=== PATIENT | male | born 1960 | race Asian ===

== ENCOUNTER 2017-03-07 10:34 | Emergency (ER) | payer MEDICARE, OTHER ==
[2017-03-07] MEDS ORDERED: OLANZapine ODT 5 MG TABLET TL ONE (10:50)
[2017-03-07] MEDS: OLANZapine ODT 5 MG TABLET TL ONE (10:53)
[2017-03-07] MEDS ORDERED: HALOPERIDOL 5 MG/ML VIAL ONE (11:18)
[2017-03-07] MEDS ORDERED: LORazepam 2 MG/ML SYRINGE ONE (11:18)
[2017-03-07] MEDS: LORazepam 2 MG/ML SYRINGE IM STA (11:20)
[2017-03-07] MEDS: HALOPERIDOL 5 MG/ML VIAL IM STA (11:20)
[2017-03-07 11:59] LABS: BASOPHILS % (AUTO) 0.4 %; EOSINOPHILS % (AUTO) 0.4 %; HCT - HEMATOCRIT 32.5 % (42.0-52.0); HGB - HEMOGLOBIN 11.2 g/dL (14.0-18.0); LYMPHOCYTES # (AUTO) 1.6 10^3/uL (1.5-3.5); LYMPHOCYTES % (AUTO) 22.3 %; MEAN CORPUSCULAR HEMOGLOBIN 30.5 pg (27.0-31.0); MEAN CORPUSCULAR HGB CONC 34.5 g/dL (32.0-36.0); MEAN CORPUSCULAR VOLUME 88.3 fL (80.0-94.0); MEAN PLATELET VOLUME 8.7 fL (7.4-11.4); MONOCYTES # (AUTO) 0.4 10^3/uL (0.0-1.0); MONOCYTES % (AUTO) 5.8 %; NEUTROPHILS # (AUTO) 5.1 10^3/uL (1.5-6.6); NEUTROPHILS % (AUTO) 71.1 %; RED BLOOD COUNT 3.68 10^6/uL (4.70-6.10); RED CELL DISTRIBUTION WIDTH 13.4 % (12.0-15.0); UNCORRECTED WHITE BLOOD COUNT 7.2 x10^3/uL; WHITE BLOOD COUNT 7.2 x10^3/uL (4.8-10.8)
[2017-03-07 12:18] LABS: ALBUMIN/GLOBULIN RATIO 1.6 (1.0-2.2); BILIRUBIN,TOTAL 0.4 mg/dL (0.2-1.0); BUN - BLOOD UREA NITROGEN 35 mg/dL (6-20); CALCIUM 9.4 mg/dL (8.5-10.3); CARBON DIOXIDE - CO2 27 mmol/L (21-32); CHLORIDE 104 mmol/L (101-111); CREATININE 1.3 mg/dL (0.6-1.2); GFR - MDRD 57 (>89); GLUCOSE 131 mg/dL (70-100); LIPASE 15 U/L (22-51); POTASSIUM 4.2 mmol/L (3.5-5.0); SALICYLATE < 6.0 mg/dL; SODIUM 140 mmol/L (135-145); TOTAL PROTEIN 6.4 g/dL (6.7-8.2)
[2017-03-07 12:19] LABS: ACETAMINOPHEN < 10 ug/mL (10-30)
[2017-03-07 14:16] LABS: BILIRUBIN,URINE NEGATIVE (NEGATIVE); PH,URINE 6.5 PH (5.0-7.5)
[2017-03-07 14:17] LABS: UA CHARGE (STRIP ONLY) YES; UR CULTURE IF IND NOT INDICATED
--- NOTE | 2017-03-07 16:48 | ED Physician Documentation ---
History of Present Illness - Stated complaint Stated Complaint: POSS. STROKE - Chief complaint Chief Complaint: MHE - History obtained from History obtained from: Patient, Family, Caregiver - Additonal information Additional information: This patient is a 56-year-old man with a long history of schizophrenia. He also has a history of diabetes and a distant history of stroke in the past. He currently resides in this area with family members. The patient's sister and her parents all live on a piece of property and share duties and trying to take care of this patient. He is always been somewhat difficult to control but lately over the past couple weeks and had increasing difficulty trying to get the patient to be compliant with his medications, eat and drink on a Regularly Basis and more importantly behave kindly and gently towards his parents. Over the past couple weeks the patient has been increasingly more aggressive sometimes verbally and sometimes physically Towards both his sister and his parents.This patient's sister and parents were the principal caregivers are now scared of him and feel that they can no longer take care of him in his current capacity.The family says that he appears to be doing well from a medical standpoint they have not noticed any delirium. He has not had any recent trauma. He has been eating and drinking well and they have not noticed any complaints of pain fever, cough, nausea, vomiting constipation or diarrhea. Review of systems: For pertinent positives and negatives see history of present illness otherwise all other systems have been reviewed and are normal. Review of Systems Unable to obtain: Uncooperative, Other (Current review of systems from family members) PD PAST MEDICAL HISTORY - Past Medical History Neuro: CVA, Peripheral neuropathy Endocrine/Autoimmune: Type 1 diabetes Psych: Other - Present Medications Home Medications: Ambulatory Orders Medication Instructions Recorded Confirmed Atorvastatin Calcium 10 mg PO QPM 08/01/16 08/01/16 Citalopram [CeleXA] 10 mg PO DAILY 08/01/16 08/01/16 Doxazosin Mesylate 2 mg PO DAILY 08/01/16 08/01/16 Insulin Aspart (Vial) [NovoLOG 6 - 8 units SUBQ TIDWM 08/01/16 08/01/16 (VIAL FOR ED USE)] Insulin Glargine,Hum.rec.anlog 22 unit SQ QDBREAKFAST 08/01/16 08/01/16 [Lantus] Levetiracetam [Keppra] 500 mg PO BID 08/01/16 08/01/16 Olanzapine 5 mg PO QPM 08/01/16 08/01/16 Omeprazole 20 mg PO DAILY 08/01/16 08/01/16 - Allergies Allergies/Adverse Reactions: Allergies Allergy/AdvReac Type Severity Reaction Status Date / Time No Known Drug Allergies Allergy Verified 08/01/16 12:53 - Social History Does the pt smoke?: Yes Smoking Status: Former smoker PD ED PE NORMAL - Vitals Vital signs reviewed: Yes - General General: No acute distress, Other PD ED PE EXPANDED - General General: Disheveled, poorly kept, In distress, Other - HEENT HEENT: Atraumatic - Eyes Eyes: PERRL - Cardiac Cardiac: Regular Rate - Abdomen Abdomen: Normal Bowel sounds - Back Back: Normal exam - Derm Derm: Normal color - Extremities Extremities: Normal - Neuro Neuro: Alert and Oriented X 3, Normal motor, Normal Sensation, Normal speech. No: Confused, Disoriented, Lethargic, Obtunded, Unresponsive, Weakness, Abnormal sensation, Right face, RUE, Dyscongugate gaze, Nystagmus, Normal gait, Normal finger nose - Psych Psych: Agitated, Combative, Manic, Pressured speech Results - Vitals Vitals: Vital Signs - 24 hr 03/07/17 03/07/17 03/07/17 10:40 12:03 15:16 Temperature 36.4 C L Heart Rate 82 81 76 Respiratory 16 18 16 Rate Blood Pressure 151/82 H 125/82 H O2 Saturation 100 100 100 Oxygen O2 Source Room air - Labs Labs: Laboratory Tests 03/07/17 03/07/17 03/07/17 11:50 11:50 11:50 WBC 7.2 RBC 3.68 L Hgb 11.2 L Hct 32.5 L MCV 88.3 MCH 30.5 MCHC 34.5 RDW 13.4 Plt Count 206 MPV 8.7 Neut # 5.1 Lymph # 1.6 [place] # 0.4 Eos # 0.0 Baso # 0.0 Absolute Nucleated RBC 0.00 Nucleated RBCs 0.0 Sodium 140 Potassium 4.2 Chloride 104 Carbon Dioxide 27 Anion Gap 9.0 BUN 35 H Creatinine 1.3 H Estimated GFR (MDRD) 57 L Glucose 131 H POC Whole Bld Glucose Calcium 9.4 Total Bilirubin 0.4 AST 19 ALT 14 Alkaline Phosphatase 73 Total Protein 6.4 L Albumin 3.9 Globulin 2.5 Albumin/Globulin Ratio 1.6 Lipase 15 L TSH 1.12 Urine Color Urine Clarity Urine pH Ur Specific [place] Urine Protein Urine Glucose (UA) Urine Ketones Urine Occult Blood Urine Nitrite Urine Bilirubin Urine Urobilinogen Ur Leukocyte Esterase Ur Microscopic Review Urine Culture Comments Salicylates < 6.0 Urine Opiates Screen Ur Oxycodone Screen Urine Methadone Screen Ur Propoxyphene Screen Acetaminophen < 10 L Ur Barbiturates Screen Ur Tricyclics Screen Ur Phencyclidine Scrn Ur Amphetamine Screen U Methamphetamines Scrn U Benzodiazepines Scrn Urine Cocaine Screen U Cannabinoids Screen Ethyl Alcohol < 5.0 03/07/17 03/07/17 13:55 15:08 WBC RBC Hgb Hct MCV MCH MCHC RDW Plt Count MPV Neut # Lymph # [place] # Eos # Baso # Absolute Nucleated RBC Nucleated RBCs Sodium Potassium Chloride Carbon Dioxide Anion Gap BUN Creatinine Estimated GFR (MDRD) Glucose POC Whole Bld Glucose 125 H Calcium Total Bilirubin AST ALT Alkaline Phosphatase Total Protein Albumin Globulin Albumin/Globulin Ratio Lipase TSH Urine Color YELLOW Urine Clarity CLEAR Urine pH 6.5 Ur Specific [place] <=1.005 Urine Protein NEGATIVE Urine Glucose (UA) 100 H Urine Ketones NEGATIVE Urine Occult Blood NEGATIVE Urine Nitrite NEGATIVE Urine Bilirubin NEGATIVE Urine Urobilinogen 0.2 (NORMAL) Ur Leukocyte Esterase NEGATIVE Ur Microscopic Review NOT INDICATED Urine Culture Comments NOT INDICATED Salicylates Urine Opiates Screen NEGATIVE Ur Oxycodone Screen NEGATIVE Urine Methadone Screen NEGATIVE Ur Propoxyphene Screen NEGATIVE Acetaminophen Ur Barbiturates Screen NEGATIVE Ur Tricyclics Screen NEGATIVE Ur Phencyclidine Scrn NEGATIVE Ur Amphetamine Screen NEGATIVE U Methamphetamines Scrn NEGATIVE U Benzodiazepines Scrn NEGATIVE Urine Cocaine Screen NEGATIVE U Cannabinoids Screen NEGATIVE Ethyl Alcohol PD MEDICAL DECISION MAKING - ED course ED course: This patient is a 56-year-old man with a long history of schizophrenia on Zyprexa as well as diabetes who presents with worsening behavioral health problems for the past several weeks. The patient's family including his parents and sister are his principal caregivers. They have been having more problems over the past couple weeks the patient has been very agitated, aggressive, probably noncompliant with his medications and has beenIncreasingly difficult to control at home. At this point in time they feel that they can no longer take care of him. The patient's sister who is a caregiver says that her parents are quite old and cannot manage him at this time and she Can help him at this time in his current capacity. The patient here in emergency department was quite agitated. He was acting in an aggressive manner. He was seen walking up to several of the nurses very quickly as if he were going to physically harm them. His speech was also quite loud and pressured. The patient started kicking several of the doors here in emergency department and at that point in time we tried toMedicate him orally with sublingual Zyprexa. When this did not work we are forced to transiently restrain him physically and administer Haldol 5 and Ativan 2 mg intramuscularly. Once there was good sedation the patient calm down the restraints were quickly removed. At this point in time he is sleeping quietly and we are awaiting mental health evaluation. The patient from a laboratory standpoint appears to be stable. Once he wakes up we will feed him and continue to watch his blood sugar. This patient will likely need placement forHis acute agitation and aggressive behavior. Transfer to psychiatric facility 1.Acute psychosis with agitation 2. History of schizophrenia on Zyprexa 3.History of diabetes on insulin currently stable
--- NOTE | 2017-03-07 22:39 | ED Physician Documentation ---
ED Addendum - Addendum Addendum: 03/07/17 22:37 Took sign out from Dr. Munoz at shift change. Briefly this is a gentleman with a long history of schizophrenia. He was being cared for by family. He was seen and evaluated by the P who ascertained that he is probably at his baseline. He is neither homicidal, suicidal, nor gravely disabled. She also ascertained that there has been some medication noncompliance from family. They wished him to be in long-term care, however twice the family is pulled him out of long-term care. She did not feel like there was any indication for acute senior living tonight. She contacted the family to come pick him up, but at this juncture the mother does not drive at night and as such he will be boarding in the emergency department overnight until the morning. He was occasionally verbally agitated while in the department but responded well to calm reassurance and his home medications.
[2017-03-08] MEDS ORDERED: levETIRAcetam 250 MG TABLET ONE (02:39)
[2017-03-08] MEDS ORDERED: OLANZapine ODT 5 MG TABLET TL ONE (02:39)
[2017-03-08] MEDS: levETIRAcetam 250 MG TABLET PO STA (02:46)
[2017-03-08] MEDS: OLANZapine ODT 5 MG TABLET TL ONE ×2 (02:46→08:05)
--- NOTE | 2017-03-08 04:19 | ED Physician Documentation ---
PD HPI DYSPNEA - Stated complaint Stated Complaint: POSS. STROKE - Chief complaint Chief Complaint: MHE PD PAST MEDICAL HISTORY - Past Medical History Neuro: CVA, Peripheral neuropathy Endocrine/Autoimmune: Type 1 diabetes Psych: Other - Present Medications Home Medications: Ambulatory Orders Medication Instructions Recorded Confirmed Atorvastatin Calcium 10 mg PO QPM 08/01/16 08/01/16 Citalopram [CeleXA] 10 mg PO DAILY 08/01/16 08/01/16 Doxazosin Mesylate 2 mg PO DAILY 08/01/16 08/01/16 Insulin Aspart (Vial) [NovoLOG 6 - 8 units SUBQ TIDWM 08/01/16 08/01/16 (VIAL FOR ED USE)] Insulin Glargine,Hum.rec.anlog 22 unit SQ QDBREAKFAST 08/01/16 08/01/16 [Lantus] Levetiracetam [Keppra] 500 mg PO BID 08/01/16 08/01/16 Olanzapine 5 mg PO QPM 08/01/16 08/01/16 Omeprazole 20 mg PO DAILY 08/01/16 08/01/16 - Allergies Allergies/Adverse Reactions: Allergies Allergy/AdvReac Type Severity Reaction Status Date / Time No Known Drug Allergies Allergy Verified 08/01/16 12:53 - Social History Does the pt smoke?: Yes Smoking Status: Former smoker Results - Vitals Vitals: Vital Signs - 24 hr 03/07/17 03/07/17 03/07/17 10:40 12:03 15:16 Temperature 36.4 C L Heart Rate 82 81 76 Respiratory 16 18 16 Rate Blood Pressure 151/82 H 125/82 H O2 Saturation 100 100 100 03/07/17 20:10 Temperature Heart Rate 87 Respiratory 20 Rate Blood Pressure 133/79 H O2 Saturation 97 Oxygen O2 Source Room air - Labs Labs: Laboratory Tests 03/07/17 03/07/17 03/07/17 11:50 11:50 11:50 WBC 7.2 RBC 3.68 L Hgb 11.2 L Hct 32.5 L MCV 88.3 MCH 30.5 MCHC 34.5 RDW 13.4 Plt Count 206 MPV 8.7 Neut # 5.1 Lymph # 1.6 [place] # 0.4 Eos # 0.0 Baso # 0.0 Absolute Nucleated RBC 0.00 Nucleated RBCs 0.0 Sodium 140 Potassium 4.2 Chloride 104 Carbon Dioxide 27 Anion Gap 9.0 BUN 35 H Creatinine 1.3 H Estimated GFR (MDRD) 57 L Glucose 131 H POC Whole Bld Glucose Calcium 9.4 Total Bilirubin 0.4 AST 19 ALT 14 Alkaline Phosphatase 73 Total Protein 6.4 L Albumin 3.9 Globulin 2.5 Albumin/Globulin Ratio 1.6 Lipase 15 L TSH 1.12 Urine Color Urine Clarity Urine pH Ur Specific [place] Urine Protein Urine Glucose (UA) Urine Ketones Urine Occult Blood Urine Nitrite Urine Bilirubin Urine Urobilinogen Ur Leukocyte Esterase Ur Microscopic Review Urine Culture Comments Salicylates < 6.0 Urine Opiates Screen Ur Oxycodone Screen Urine Methadone Screen Ur Propoxyphene Screen Acetaminophen < 10 L Ur Barbiturates Screen Ur Tricyclics Screen Ur Phencyclidine Scrn Ur Amphetamine Screen U Methamphetamines Scrn U Benzodiazepines Scrn Urine Cocaine Screen U Cannabinoids Screen Ethyl Alcohol < 5.0 03/07/17 03/07/17 03/07/17 13:55 15:08 20:02 WBC RBC Hgb Hct MCV MCH MCHC RDW Plt Count MPV Neut # Lymph # [place] # Eos # Baso # Absolute Nucleated RBC Nucleated RBCs Sodium Potassium Chloride Carbon Dioxide Anion Gap BUN Creatinine Estimated GFR (MDRD) Glucose POC Whole Bld Glucose 125 H 211 H Calcium Total Bilirubin AST ALT Alkaline Phosphatase Total Protein Albumin Globulin Albumin/Globulin Ratio Lipase TSH Urine Color YELLOW Urine Clarity CLEAR Urine pH 6.5 Ur Specific [place] <=1.005 Urine Protein NEGATIVE Urine Glucose (UA) 100 H Urine Ketones NEGATIVE Urine Occult Blood NEGATIVE Urine Nitrite NEGATIVE Urine Bilirubin NEGATIVE Urine Urobilinogen 0.2 (NORMAL) Ur Leukocyte Esterase NEGATIVE Ur Microscopic Review NOT INDICATED Urine Culture Comments NOT INDICATED Salicylates Urine Opiates Screen NEGATIVE Ur Oxycodone Screen NEGATIVE Urine Methadone Screen NEGATIVE Ur Propoxyphene Screen NEGATIVE Acetaminophen Ur Barbiturates Screen NEGATIVE Ur Tricyclics Screen NEGATIVE Ur Phencyclidine Scrn NEGATIVE Ur Amphetamine Screen NEGATIVE U Methamphetamines Scrn NEGATIVE U Benzodiazepines Scrn NEGATIVE Urine Cocaine Screen NEGATIVE U Cannabinoids Screen NEGATIVE Ethyl Alcohol Departure - Departure Disposition: 01 Home, Self Care Clinical Impression: Schizophrenia Qualifiers: Schizophrenia type: paranoid schizophrenia Qualified Code(s): F20.0 - Paranoid schizophrenia Condition: Stable Instructions: ED Paranoid Schizophrenia Comments: He needs to take his medications as prescribed previously. Follow-up with [facility] at [phone] to schedule psychiatric care and counseling.
--- NOTE | 2017-03-08 04:26 | ED Physician Documentation ---
ED Addendum - Addendum Addendum: 03/08/17 04:19 He was resting at time of change of care provider. During night he got up to go to the bathroom, but was wandering and not really listening to guidance (he had commode in room pointed out to him several times). He was wandering in room and out in steele. Did not follow guidance well, took repetitive asking to get him to go back into room. He then used commode and had BM and void. He did not have instinct to wipe himself and nursing wiped him when he got back into bed. He was only talking in simple word answers. Review of prior notes shows this is likely baseline speech and has been the issue recently of behavioral. Review of his night meds shows he takes Olanzapine and Keppra at night, and given thos doses PO (he had had extra dose Olanzapine earlier about 6 pm). He then went back into bed at repeated direction. He did not need restraining. He went back to bed and sleep after about 20 minutes. Fingerstick sugar was good prior to going to sleep. Apparent behavioral issues lately and seems to respond to added med doses here. Presume would discharge with increasing his night dose of Olanzapine from 5 mg to 10 mg (or) could add AM dose so 5 mg BID depending if having much daytime symptoms.
[2017-03-08] MEDS ORDERED: INSULIN REGULAR HUMAN 100 UNIT/1 ML 10 ML MDV ONE (08:07)
[2017-03-08] MEDS: INSULIN REGULAR HUMAN 100 UNIT/1 ML 10 ML MDV SUBQ STA (08:13)
--- NOTE | 2017-03-08 09:38 | ED Physician Documentation ---
History of Present Illness - Stated complaint Stated Complaint: POSS. STROKE - Chief complaint Chief Complaint: MHE - Additonal information Additional information: This patient was seen by me initially yesterday for aggressive behavior and inability to for his family members to care for him at the present time. He was treated with an additional dose of Zyprexa couple times as well as Haldol and Ativan has been more or less Fairly calm during his visit Here in emergency department. From medical standpoint everything appears to be stable. I see no indication of anything Acutely medical as a cause of his temporary decompensation. There is no evidence of stroke clinically. His diabetes was relatively well controlled. He was given 1 dose of insulin early in the morning on the day of discharge after eating. His initial pre-meal glucose was 240 mg/dL. He has been seen by mental health and has a follow-up appointment on Friday at 830 with additional follow-up appointment on . I am recommending as did the previous physician to increase his Zyprexa to 10 mg a day from 5. A new prescription has been written and issued to the family. PD PAST MEDICAL HISTORY - Past Medical History Neuro: CVA, Peripheral neuropathy Endocrine/Autoimmune: Type 1 diabetes Psych: Other - Present Medications Home Medications: Ambulatory Orders Medication Instructions Recorded Confirmed Atorvastatin Calcium 10 mg PO QPM 08/01/16 08/01/16 Citalopram [CeleXA] 10 mg PO DAILY 08/01/16 08/01/16 Doxazosin Mesylate 2 mg PO DAILY 08/01/16 08/01/16 Insulin Aspart (Vial) [NovoLOG 6 - 8 units SUBQ TIDWM 08/01/16 08/01/16 (VIAL FOR ED USE)] Insulin Glargine,Hum.rec.anlog 22 unit SQ QDBREAKFAST 08/01/16 08/01/16 [Lantus] Levetiracetam [Keppra] 500 mg PO BID 08/01/16 08/01/16 Olanzapine 5 mg PO QPM 08/01/16 08/01/16 Omeprazole 20 mg PO DAILY 08/01/16 08/01/16 Olanzapine [Zyprexa] 10 mg PO DAILY #20 tablet 03/08/17 - Allergies Allergies/Adverse Reactions: Allergies Allergy/AdvReac Type Severity Reaction Status Date / Time No Known Drug Allergies Allergy Verified 08/01/16 12:53 - Social History Does the pt smoke?: Yes Smoking Status: Former smoker Results - Vitals Vitals: Vital Signs - 24 hr 03/07/17 03/07/17 03/07/17 10:40 12:03 15:16 Temperature 36.4 C L Heart Rate 82 81 76 Respiratory 16 18 16 Rate Blood Pressure 151/82 H 125/82 H O2 Saturation 100 100 100 03/07/17 03/08/17 03/08/17 20:10 06:17 08:06 Temperature 36.3 C L Heart Rate 87 77 80 Respiratory 20 16 12 Rate Blood Pressure 133/79 H 132/80 H 117/67 O2 Saturation 97 98 99 Oxygen O2 Source Room air - Labs Labs: Laboratory Tests 03/07/17 03/07/17 03/07/17 11:50 11:50 11:50 WBC 7.2 RBC 3.68 L Hgb 11.2 L Hct 32.5 L MCV 88.3 MCH 30.5 MCHC 34.5 RDW 13.4 Plt Count 206 MPV 8.7 Neut # 5.1 Lymph # 1.6 [place] # 0.4 Eos # 0.0 Baso # 0.0 Absolute Nucleated RBC 0.00 Nucleated RBCs 0.0 Sodium 140 Potassium 4.2 Chloride 104 Carbon Dioxide 27 Anion Gap 9.0 BUN 35 H Creatinine 1.3 H Estimated GFR (MDRD) 57 L Glucose 131 H POC Whole Bld Glucose Calcium 9.4 Total Bilirubin 0.4 AST 19 ALT 14 Alkaline Phosphatase 73 Total Protein 6.4 L Albumin 3.9 Globulin 2.5 Albumin/Globulin Ratio 1.6 Lipase 15 L TSH 1.12 Urine Color Urine Clarity Urine pH Ur Specific [place] Urine Protein Urine Glucose (UA) Urine Ketones Urine Occult Blood Urine Nitrite Urine Bilirubin Urine Urobilinogen Ur Leukocyte Esterase Ur Microscopic Review Urine Culture Comments Salicylates < 6.0 Urine Opiates Screen Ur Oxycodone Screen Urine Methadone Screen Ur Propoxyphene Screen Acetaminophen < 10 L Ur Barbiturates Screen Ur Tricyclics Screen Ur Phencyclidine Scrn Ur Amphetamine Screen U Methamphetamines Scrn U Benzodiazepines Scrn Urine Cocaine Screen U Cannabinoids Screen Ethyl Alcohol < 5.0 03/07/17 03/07/17 03/07/17 13:55 15:08 20:02 WBC RBC Hgb Hct MCV MCH MCHC RDW Plt Count MPV Neut # Lymph # [place] # Eos # Baso # Absolute Nucleated RBC Nucleated RBCs Sodium Potassium Chloride Carbon Dioxide Anion Gap BUN Creatinine Estimated GFR (MDRD) Glucose POC Whole Bld Glucose 125 H 211 H Calcium Total Bilirubin AST ALT Alkaline Phosphatase Total Protein Albumin Globulin Albumin/Globulin Ratio Lipase TSH Urine Color YELLOW Urine Clarity CLEAR Urine pH 6.5 Ur Specific [place] <=1.005 Urine Protein NEGATIVE Urine Glucose (UA) 100 H Urine Ketones NEGATIVE Urine Occult Blood NEGATIVE Urine Nitrite NEGATIVE Urine Bilirubin NEGATIVE Urine Urobilinogen 0.2 (NORMAL) Ur Leukocyte Esterase NEGATIVE Ur Microscopic Review NOT INDICATED Urine Culture Comments NOT INDICATED Salicylates Urine Opiates Screen NEGATIVE Ur Oxycodone Screen NEGATIVE Urine Methadone Screen NEGATIVE Ur Propoxyphene Screen NEGATIVE Acetaminophen Ur Barbiturates Screen NEGATIVE Ur Tricyclics Screen NEGATIVE Ur Phencyclidine Scrn NEGATIVE Ur Amphetamine Screen NEGATIVE U Methamphetamines Scrn NEGATIVE U Benzodiazepines Scrn NEGATIVE Urine Cocaine Screen NEGATIVE U Cannabinoids Screen NEGATIVE Ethyl Alcohol 03/08/17 03/08/17 06:13 07:57 WBC RBC Hgb Hct MCV MCH MCHC RDW Plt Count MPV Neut # Lymph # [place] # Eos # Baso # Absolute Nucleated RBC Nucleated RBCs Sodium Potassium Chloride Carbon Dioxide Anion Gap BUN Creatinine Estimated GFR (MDRD) Glucose POC Whole Bld Glucose 260 H 257 H Calcium Total Bilirubin AST ALT Alkaline Phosphatase Total Protein Albumin Globulin Albumin/Globulin Ratio Lipase TSH Urine Color Urine Clarity Urine pH Ur Specific [place] Urine Protein Urine Glucose (UA) Urine Ketones Urine Occult Blood Urine Nitrite Urine Bilirubin Urine Urobilinogen Ur Leukocyte Esterase Ur Microscopic Review Urine Culture Comments Salicylates Urine Opiates Screen Ur Oxycodone Screen Urine Methadone Screen Ur Propoxyphene Screen Acetaminophen Ur Barbiturates Screen Ur Tricyclics Screen Ur Phencyclidine Scrn Ur Amphetamine Screen U Methamphetamines Scrn U Benzodiazepines Scrn Urine Cocaine Screen U Cannabinoids Screen Ethyl Alcohol Departure - Departure Disposition: 01 Home, Self Care Clinical Impression: Schizophrenia Qualifiers: Schizophrenia type: paranoid schizophrenia Qualified Code(s): F20.0 - Paranoid schizophrenia Condition: Stable Instructions: ED Paranoid Schizophrenia Prescriptions: Olanzapine [Zyprexa] 10 mg PO DAILY #20 tablet Comments: He needs to take his medications as prescribed previously. Increase PM dose of Olanzapine from 5 mg to 10 mg daily. Follow-up with [facility] at [phone] to schedule psychiatric care and counseling.[facility] wants to see you at 8:30 in the morning. At that point they will discuss treatment options and will schedule a psychiatric appointment for March. A new prescription for an increased dose of Zyprexa has been written
[2017-03-08 09:50] VITALS: BP 122/67
== END 2017-03-08 10:07 | disposition home or self-care (01) ==
LOC: ED 10:34
DX: F20.0 Paranoid schizophrenia (principal); Z86.73 Personal history of transient ischemic attack (TIA), and cerebral infarction without residual deficits; E10.42 Type 1 diabetes mellitus with diabetic polyneuropathy; Z79.4 Long term (current) use of insulin; Z87.891 Personal history of nicotine dependence
CPT/HCPCS: 36415; 51701; 80053; 80306; 80307; 80320; 80329; 81001; 81003; 83690; 84443; 85025; 87086; 96372; 99285